=== PATIENT | female | born 1940 | race Caucasian/White ===

== ENCOUNTER 2019-04-11 10:59 | Outpatient (CLI) | payer MEDICARE | END 2019-04-11 23:59 | disposition home or self-care (01) | LOC: CFH 10:59 | PROVIDERS: ATTEND Internal Medicine Cardiovascular Disease | DX: I08.3 Combined rheumatic disorders of mitral, aortic and tricuspid valves (principal); E78.5 Hyperlipidemia, unspecified | CPT/HCPCS: 0399T; 78452; 93017; 93306; A9502; J2785 ==